=== PATIENT | male | born 1985 | race African-American/Black ===

== ENCOUNTER 2017-02-15 21:29 | Emergency (ER) | payer OTHER ==
[2017-02-15 22:44] LABS: BILIRUBIN,URINE NEGATIVE (NEGATIVE); PH,URINE 5.5 PH (5.0-7.5)
[2017-02-15 22:46] LABS: UA CHARGE (STRIP ONLY) YES; UR CULTURE IF IND NOT INDICATED
--- NOTE | 2017-02-15 23:07 | ED Physician Documentation ---
PD HPI MALE - Stated complaint Stated Complaint: MALE CHECK - Chief complaint Chief Complaint: General - History obtained from History obtained from: Patient - History of Present Illness Timing - onset: How many days ago (2) Timing - duration: Days (2) Timing - details: Gradual onset Pain level max: 0 Pain level now: 0 Associated symptoms: No: Dysuria, Urinary frequency, Unable to urinate, Hematuria, Discharge, Genital sore / lesion, Testiclar pain, Scrotal swelling PD HPI MALE CONTRIB FACTORS: Sexually active Similar symptoms before: Has not had sx before Recently seen: Not recently seen - Additional information Additional information: States has been feeling hot and cold sensations on his penis. Concerned that he may have been exposed to herpes. Review of Systems Constitutional: denies: Fever GI: denies: Vomiting : denies: Dysuria, Frequency, Hesitancy, Hematuria, Discharge, Testicular pain , Testicular mass Skin: denies: Rash, Lesions PD PAST MEDICAL HISTORY - Past Medical History Past Medical History: No Cardiovascular: None Respiratory: None Neuro: None Endocrine/Autoimmune: None GI: None : None HEENT: None Psych: None Musculoskeletal: None Derm: None - Past Surgical History Past Surgical History: Yes Ortho: Other - Present Medications Home Medications: Ambulatory Orders Medication Instructions Recorded Confirmed Multivitamin [Multivitamins] 1 cap PO DAILY 02/15/17 02/15/17 - Allergies Allergies/Adverse Reactions: Allergies Allergy/AdvReac Type Severity Reaction Status Date / Time latex AdvReac Rash Verified 02/15/17 21:35 - Social History Does the pt smoke?: No Smoking Status: Never smoker Does the pt drink ETOH?: Yes ETOH Use: Wine Does the pt have substance abuse?: No - Immunizations Immunizations are current?: Yes PD ED PE NORMAL - Vitals Vital signs reviewed: Yes - General General: Alert and oriented X 3, No acute distress - Male Male : Other (normal exam. no tenderness. no swelling. no lesions. no discharge.) - Derm Derm: Warm and dry - Neuro Neuro: Alert and oriented X 3 - Psych Psych: Normal mood, Normal affect Results - Vitals Vitals: Vital Signs - 24 hr 02/15/17 02/15/17 21:32 23:19 Temperature 36.2 C L Heart Rate 92 72 Respiratory 16 14 Rate Blood Pressure 144/95 H 130/72 O2 Saturation 92 99 Oxygen O2 Source Room air - Labs Labs: Laboratory Tests 02/15/17 21:43 Urine Color STRAW Urine Clarity CLEAR Urine pH 5.5 Ur Specific [place] <=1.005 Urine Protein NEGATIVE Urine Glucose (UA) NEGATIVE Urine Ketones NEGATIVE Urine Occult Blood NEGATIVE Urine Nitrite NEGATIVE Urine Bilirubin NEGATIVE Urine Urobilinogen 0.2 (NORMAL) Ur Leukocyte Esterase NEGATIVE Ur Microscopic Review NOT INDICATED Urine Culture Comments NOT INDICATED PD MEDICAL DECISION MAKING - ED course Complexity details: considered differential, d/w patient ED course: Patient is concerned about possible STD exposure. Specifically herpes. There are no lesions to culture. No evidence of herpes infection clinically. Urine was sent for gonorrhea and Chlamydia testing and blood was drawn for herpes simplex testing. We will plan to call the patient if the testing returns positive. Recommend that he follow-up with his doctor for further evaluation and care including HIV testing. Recommend condoms for sexual activity. Patient counseled regarding signs and symptoms for which I believe and urgent re -evaluation would be necessary. Patient with good understanding of and agreement to plan and is comfortable going home at this time This document was made in part using voice recognition software. While efforts are made to proofread this document, sound alike and grammatical errors may occur. Departure - Departure Disposition: 01 Home, Self Care Clinical Impression: Concern about STD in male without diagnosis Condition: Good Instructions: STD Sx Men Teen Follow-Up: your,doctor in 1 week for further testing [Other] Comments: Your tests should be back in a few days and we will call you if they are positive. Use condoms for any sexual activity. You should also have HIV testing performed with your doctor. Discharge Date/Time: 02/15/17 23:24
[2017-02-15 23:20] VITALS: BP 130/72
== END 2017-02-15 23:24 | disposition home or self-care (01) ==
LOC: ED 21:29
DX: Z20.2 Contact with and (suspected) exposure to infections with a predominantly sexual mode of transmission (principal)
CPT/HCPCS: 81001; 81003; 86695; 86696; 87081; 87086; 87491; 87591; 99282; 99283

== ENCOUNTER 2017-05-02 14:08 | Emergency (ER) | payer OTHER ==
[2017-05-02 14:20] VITALS: BP 109/59
--- NOTE | 2017-05-02 14:56 | ED Physician Documentation ---
PD HPI WOUND RECHECK - Stated complaint Stated Complaint: SUTURE REMOVAL - Chief complaint Chief Complaint: Wound - Histroy obtained from History obtained from: Patient - History of Present Illness Location: Scalp Timing - onset: How many weeks ago (had plastic surgery hair transplant a week ago and was to get sutures removed in a week. Procedure in [place], so more convenient to come here.) Recently seen: Surgery (office based hair transplant) Review of Systems Constitutional: denies: Fever, Chills PD PAST MEDICAL HISTORY - Past Medical History Cardiovascular: None Respiratory: None Neuro: None Endocrine/Autoimmune: None GI: None : None HEENT: None Psych: None Musculoskeletal: None Derm: None - Past Surgical History Past Surgical History: Yes Ortho: Other - Present Medications Home Medications: Ambulatory Orders Medication Instructions Recorded Confirmed Multivitamin [Multivitamins] 1 cap PO DAILY 02/15/17 02/15/17 - Allergies Allergies/Adverse Reactions: Allergies Allergy/AdvReac Type Severity Reaction Status Date / Time latex AdvReac Rash Verified 02/15/17 21:35 - Social History Does the pt smoke?: No Smoking Status: Never smoker Does the pt drink ETOH?: Yes Does the pt have substance abuse?: No - Immunizations Immunizations are current?: Yes PD ED PE NORMAL - Vitals Vital signs reviewed: Yes - General General: Alert and oriented X 3, Well developed/nourished - HEENT HEENT: Other (right parietal scalp with linear surgical wound with running suture. No signs of infection. Edges together. ) Results - Vitals Vitals: Vital Signs - 24 hr 05/02/17 14:18 Temperature 36.5 C Heart Rate 72 Respiratory 14 Rate Blood Pressure 109/59 L O2 Saturation 100 Oxygen O2 Source Room air PD MEDICAL DECISION MAKING - ED course Complexity details: considered differential (wound looked good with edges intact and no signs of infection. Sutures removed without problems. ), d/w patient Departure - Departure Disposition: 01 Home, Self Care Discharge Date/Time: 05/02/17 15:09
== END 2017-05-02 15:09 | disposition home or self-care (01) ==
LOC: ED 14:08
DX: Z48.02 Encounter for removal of sutures (principal); Z98.890 Other specified postprocedural states
CPT/HCPCS: 99282